=== PATIENT | female | born 1960 | race Caucasian/White ===

== ENCOUNTER 2018-02-09 08:39 | Observation (INO) ==
--- OUTSIDE RECORDS SUMMARY | 2018-02-09 09:00 | External Medical Summary | Clinical Summary ---
:1960 Author Organization [facility] Address [address] [place] [address] Care Team Providers Name Role Phone Preston Alonso MD Unavailable Santos Saucedo MD Unavailable Monica Murrieta MD Primary Care Provider Source Comments Some departments are not documenting in the electronic medical record. If you do not see the information that you expected, contact Release of Information in the Health Information Management department at [phone] for further assistance in locating additional records.[facility] Allergies Active Allergy Reactions Severity Noted Date Comments Hydrocodone UNKNOWN Low 01/13/2015 Morphine ITCHING Low 03/03/2015 Current Medications Prescription Sig. Disp. Refills Start Date End Date Status estradiol (ESTRACE) Take 2 mg by Active 1 mg tablet mouth daily. Naproxen-Esomeprazo Take by Active le Mag 500-20 mg mouth. TbID gabapentin Take 1 90 capsule 3 05/07/2017 Active (NEURONTIN) 100 mg capsule by capsuleIndications: mouth at Other insomnia bedtime daily. carbidopa/levodopa Take 1.5 210 tablet 8 01/14/2018 Active (SINEMET) 25/100 mg tablets by tabletIndications: mouth four Parkinson disease times daily. (HCC) at 6.30a,10.30a, 2.30p and at 6.30p amantadine Take 1 60 capsule 5 01/14/2018 Active (SYMMETREL) 100 mg capsule by capsuleIndications: mouth twice Parkinson disease daily. (HCC) rOPINIRole (REQUIP) Take 1 tablet 01/14/2018 Active 3 mg by mouth tabletIndications: twice daily. Parkinson disease ([facility]) rOPINIRole (REQUIP) TAKE ONE 90 tablet 8 07/26/2017 01/14/2018 Discontinued 3 mg TABLET BY tabletIndications: MOUTH THREE Parkinson disease TIMES A DAY ([facility]) carbidopa/levodopa 1.5 tab at 210 tablet 8 07/26/2017 01/14/2018 Discontinued (SINEMET) 25/100 mg 6.30a, 2 tab tabletIndications: at10.30a, Parkinson disease 2.30p and 1.5 ([facility]) tab at 6.30p Active Problems Problem Noted Date Cognitive change 05/07/2017 Overview: 2014 MOCA Last Assessment & Plan: Her symptoms are stable. No medication changes were recommended during the current visit. Insomnia 06/05/2016 Overview: On Neurontin (gabapentin) Last Assessment & Plan: Her symptoms are stable. No medication changes were recommended during the current visit. Parkinson disease ([facility]) 01/26/2015 Overview: Symptoms began in 2009, initial symptoms was left sided slowness. Diagnosed with Parkinson's disease in 2014. Atypical PD Features: Tremor Absent 01/30/2015 Total Mentation Score: 1 Total Activities of Daily Living Score: 4 Total Motor Exam: 25 Total UPDRS Score: 30 PDQ Total Percent: 14.1 % 03/05/2015 PDQ8 Total %: 3 Improved with Sinemet (carbidopa/levodopa) 25/100 10/04/2015 PDQ8 Total %: 6 06/05/2016 Nausea with Sinemet (carbidopa/levodopa) 25/100 PDQ8 Total %: 6 05/25/2017 PDQ8 Total %: 9 01/14/2018 PDQ8 Total %: 16 Personal KinetiGraph (PKG) Movement Recording: Bradykinesia: 13.1 Dyskinesia: 4.3 FDS: 11.2 PTI: 1.1% PTT: 0.4% Hand Pharmacoepidemiologist Strength: RIGHT: 27.6 KG LEFT: 23.7 KG Last Assessment & Plan: I recommended reducing Sinemet (carbidopa/levodopa) 25/100 to 1.5 tab four times a day due to possible dyskinesia. Patient was started on amantadine for dyskinesia. She was started on amantadine 100 mg twice a day. Side effects of amantadine were discussed with the patient and she was given a list of common side effects. The patient will call us in 1-2 weeks if dose adjustments are needed. Encounters Date Type Specialty Care Team Description 01/17/2018 Telephone Neurology Santos Saucedo MD Referral (BIG program) 01/14/2018 Office Visit Neurology Santos Saucedo MD Parkinson disease (HCC ) (Primary Dx); Cognitive change; Other insomnia from Last 3 Months Family History Medical History Relation Name Comments Cancer Other Dementia Neg Hx Parkinson's Neg Hx Tremor Neg Hx Relation Name Status Comments Other Social History Tobacco Use Types Packs/Day Years Used Date Never Smoker Smokeless Tobacco: Never Used Alcohol Use Drinks/Week oz/Week Comments Yes 0 Standard drinks or equivalent 0.0 rarely Sex Assigned at Date Recorded Not on file Last Filed Vital Signs Vital Sign Reading Time Taken Blood Pressure 105/72 01/14/2018 10:36 AM CDT Pulse 85 01/14/2018 10:36 AM CDT Temperature 36.7 C (98.1 F) 01/13/2015 2:57 PM CDT Respiratory Rate - - Oxygen Saturation 99% 01/13/2015 2:57 PM CDT Inhaled Oxygen Concentration - - Weight 62.4 kg (137 lb 9.6 oz) 01/14/2018 10:31 AM CDT Height 168.3 cm (5' 6.25") 01/14/2018 10:31 AM CDT Body Mass Index 22.04 01/14/2018 10:31 AM CDT Plan of Treatment Health Maintenance Due Date Last Done Comments HEPATITIS C SCREENING 1960 PHYSICAL (COMPREHENSIVE) EXAM 1965 PERTUSSIS VACCINE 1969 HIV SCREENING 1973 TETANUS VACCINE 1975 CERVICAL CANCER SCREENING 1988 BREAST CANCER SCREENING 1998 COLORECTAL CANCER SCREENING 2008 SHINGLES RECOMBINANT VACCINE (1 2008 of 2) INFLUENZA VACCINE 04/01/2018 07/16/2013, 03/31/2009, 04/29/2008, Additional history exists
--- OUTSIDE RECORDS SUMMARY | 2018-02-09 09:01 | External Medical Summary | Encounter Summary ---
:1960 Author Organization [facility] Address [address] [place] [address] Care Team Providers Name Role Phone Preston Alonso MD Unavailable Santos Saucedo MD Unavailable Monica Murrieta MD Primary Care Provider Reason for Visit Reason Comments Parkinson's Disease Encounter Details Date Type Department Care Team Description 01/14/2018 Office Visit [facility] Santos Saucedo MD Parkinson disease (HCC) (Primary Dx); Physicians-Neurology [address] Cognitive change; [facility] [place] [address] Other insomnia [place], [place] [address] [address] [place], [place] [phone] Social History Tobacco Use Types Packs/Day Years Used Date Never Smoker Smokeless Tobacco: Never Used Alcohol Use Drinks/Week oz/Week Comments Yes 0 Standard drinks or equivalent 0.0 rarely Sex Assigned at Date Recorded Not on file as of this encounter Last Filed Vital Signs Vital Sign Reading Time Taken Blood Pressure 105/72 01/14/2018 10:36 AM CDT Pulse 85 01/14/2018 10:36 AM CDT Temperature - - Respiratory Rate - - Oxygen Saturation - - Inhaled Oxygen Concentration - - Weight 62.4 kg (137 lb 9.6 oz) 01/14/2018 10:31 AM CDT Height 168.3 cm (5' 6.25") 01/14/2018 10:31 AM CDT Body Mass Index 22.04 01/14/2018 10:31 AM CDT in this encounter Instructions Patient Instructions - Santos Saucedo MD - 01/14/2018 11:00 AM CDTYou were prescribed amantadine, an antiviral, as treatment for Parkinsons disease. Amantadine isavailable in the following forms, 100mg capsules and tablets. You will take amantadine in the morning and afternoon. As with any medications, amantadine can have side effects. Common side effects are nausea, dizziness, constipation, confusion, fainting, hallucinations (seeing , hearing or feeling things that are not there), swelling of hands and feet, purplish red, net-like blotchy spots on skin. If you have any questions or side effects please call NEXT WEEK: Reduce Sinemet (carbidopa/levodopa) 25/100 1.5 tab four times a day in this encounter Progress Notes Santos Saucedo MD - 01/14/2018 11:00 AM CDTFormatting of this note may be different from the original. Date of Service: 01/14/2018 Subjective: Cheryl Metcalf is a 57 y.o. female. History of Present Illness Parkinson's Disease Follow-Up Visit Since my last visit I am: Slighly worse Symptoms Scale: Memory problems: Mild, bothersome Hallucinations/delusions: None Depression: Mild, occurs due to a reason Anxiety: None Apathy: Mild, elective activities affected Impulsive behavior: None Nighttime sleep: Mild, wake up to go to bathroom Daytime sleepiness: Slight, occasionally Vivid dreams: Slight, occasional REM sleep behavior disorder: None Restless leg syndrome: Mild, occasionally, mainly on prolonged seating Pain or muscle cramps: Mild, muscle or joint pain need medications Urination: Mild, go frequently, bothersome Constipation: None Dizziness or lightheadedness: Slight, occasional on standing Tiredness/Fatigue: Mild, occasionally tired Falling: I have not fallen Personal care assistance: I do not need any help, I take care of myself without any problems Total Score: Total Score: 19 Assistive Devices: Assistive devices for getting around: None OFF Time: OFF time: Yes Hours/day of OFF time: 2 Number of episodes/day: 2 OFF time is bothersome: All of the time Muscles spasms or strange posturing: Yes OFF disability: They are annoying to me Dyskinesia: Dyskinesia while awake: Yes Hours/day of dyskinesia: 1 Number of episodes/day: 2 Dyskinesia disability: Do not bother me but bothers my partner Employment Status: Employment: Currently working part-time or have changed jobs due to PD Review of Systems HENT: Positive for trouble swallowing. Gastrointestinal: Negative. Genitourinary: Positive for urgency. Negative for decreased urine volume, difficulty urinating, dyspareunia, dysuria, enuresis, flank pain, frequency, genital sores, hematuria, menstrual problem, pelvic pain, vaginal bleeding, vaginal discharge and vaginal pain. Objective: amantadine (SYMMETREL) 100 mg capsule Take 1 capsule by mouth twice daily. carbidopa/levodopa (SINEMET) 25/100 mg tablet Take 1.5 tablets by mouth four times daily. at 6.30a,10.30a, 2.30p and at 6.30p estradiol (ESTRACE) 1 mg tablet Take 2 mg by mouth daily. gabapentin (NEURONTIN) 100 mg capsule Take 1 capsule by mouth at bedtime daily. (Patient taking differently: Take 100 mg by mouth at bedtime as needed. 2 -3 weekly at bedtime) Naproxen-Esomeprazole Mag 500-20 mg TbID Take by mouth. rOPINIRole (REQUIP) 3 mg tablet Take 1 tablet by mouth twice daily. Vitals: 01/14/18 1031 01/14/18 1036 BP: 107/66 105/72 Pulse: 63 85 Weight: 62.4 kg (137 lb 9.6 oz) Height: 168.3 cm (66.25") Body mass index is 22.04 kg/m. Physical Exam EXAMINATION: ORIENTATION: Alert and Oriented. Cranial Nerves: II-XII Unremarkable except reduced facial expression and soft voice. Right Left Bradkinesia None Mild Tremor Hands Resting None None Postural None None Kinetic None None Tremor Other: None Dyskinesia: Mild Muscle Strength: Unremarkable Gait: Independent with minor impairment reduced left arm swing Can arise from the chair with arms folded PDQ8 - Quality of Life Had difficulty getting around in public places?: Never Had difficulty dressing?: Never [place] depressed?: Occasionally Had problems with your close personal relationships?: Occasionally Had problems with your concentration, for example, when reading or watching TV? : Never [place] unable to communicate effectively?: Occasionally Had painful muscle cramps or spasms?: Occasionally [place] embarrassed in public due to having Parkinson's disease?: Ocassionally PDQ8 Total Score (32 Possible): 5 PDQ8 Total %: 16 Assessment and Plan: Problem Parkinson disease (HCC) Symptoms began in 2009, initial symptoms was [...] %: 6 06/05/2016 Nausea with Sinemet (carbidopa/levodopa) 25/ PDQ8 Total %: 6 05/25/2017 PDQ8 Total %: 9 01/14/2018 PDQ8 Total %: 16 Personal KinetiGraph (PKG) Movement Recording: Bradykinesia: 13.1 Dyskinesia: 4.3 FDS: 11.2 PTI: 1.1% PTT: 0.4% Hand Therapeutic Dietitian Strength: RIGHT: 27.6 KG LEFT: 23.7 KG Cognitive Change 2014 MOCA Insomnia On Neurontin (gabapentin) Parkinson disease (HCC) I recommended reducing Sinemet (carbidopa/levodopa) 25/100 to 1.5 tab four times a day due to possible dyskinesia. Patient was started on amantadine for dyskinesia. She was started on amantadine 100 mgtwice a day. Side effects of amantadine were discussed with the patient and she was given a list of common side effects. The patient will call us in 1-2 weeks if dose adjustments are needed. Insomnia Her symptoms are stable. No medication changes were recommended during the current visit. Cognitive change Her symptoms are stable. No medication changes were recommended during the current visit. Patient will follow up in approximately 6 months. in this encounter Miscellaneous Notes Assessment & Plan Note - Santos Saucedo MD - 01/14/2018 11:04 AM CDT Associated Problem(s): Cognitive changeHer symptoms are stable. No medication changes were recommended during the current visit.Assessment & Plan Note - Santos Saucedo MD - 01/14/2018 11:04 AM CDTAssociated Problem(s): InsomniaHer symptoms are stable. No medication changes were recommended during the current visit.Assessment & Plan Note - Santos Saucedo MD - 01/14/2018 11:03 AM CDT Associated Problem(s): Parkinson disease (HCC)I recommended reducing Sinemet ( carbidopa/levodopa) 25/100 to 1.5 tab four times a day due to possible dyskinesia. Patient was started on amantadine for dyskinesia. She was started on amantadine 100 mgtwice a day. Side effects of amantadine were discussed with the patient and she was given a list of common side effects. The patient will call us in 1-2 weeks if dose adjustments are needed.in this encounter Plan of Treatment Not on fileas of this encounter Visit Diagnoses Diagnosis Parkinson disease (HCC) - Primary Paralysis agitans Cognitive change Other signs and symptoms involving cognition Other insomnia
--- OUTSIDE RECORDS SUMMARY | 2018-02-09 09:01 | External Medical Summary | Encounter Summary ---
:1960 Author Organization [facility] Address [address] [place] [address] Care Team Providers Name Role Phone Preston Alonso MD Unavailable Santos Saucedo MD Unavailable Monica Murrieta MD Primary Care Provider Reason for Referral Consult, Test & Treat Status Reason Specialty Diagnoses / Referred By Referred To Procedures Contact Contact New Request Specialty Diagnoses Parkinson disease (HCC) Santos Saucedo Services MD Required [address] [facility] [address] [place] [address] Reason for Visit Reason Comments Referral BIG program Encounter Details Date Type Department Care Team Description 01/17/2018 Telephone [facility] Santos Saucedo MD Referral (BIG program) Physicians-Neurology [address] [facility] [place] [facility] [address] [place] [phone] Social History Tobacco Use Types Packs/Day Years Used Date Never Smoker Smokeless Tobacco: Never Used Alcohol Use Drinks/Week oz/Week Comments Yes 0 Standard drinks or equivalent 0.0 rarely Sex Assigned at Date Recorded Not on file as of this encounter Miscellaneous Notes Telephone Encounter - Kiana Lynne LPN - 01/18/2018 10:07 AM CDTPt informed Telephone Encounter - Santos Saucedo MD - 01/17/2018 3:08 PM CDTokTelephone Encounter - Kiana Lynne, DAY CAMP COUNSELOR - 01/17/2018 9:11 AM CDTPt asked if you prefer her to do LSVT BIG?in this encounter Plan of Treatment Scheduled Referrals Name Priority Associated Diagnoses Order Schedule AMB REFERRAL TO PHYSICAL THERAPY Routine Parkinson disease (HCC) Ordered: as of this encounter Visit Diagnoses Diagnosis Parkinson disease (HCC) - Primary Paralysis agitans
[2018-02-09 09:13] VITALS: BMI 22.1
[2018-02-09 16:28] VITALS: BP 100/59; RESP 14; TEMP 95.7; O2SAT 98
--- NOTE | 2018-02-09 21:03 | Cardiology History & Physical ---
History of Present Illness Chief complaint: Chest pain HPI: This is a [facility] Patient Stated Medical History Parkinson's Disease Yes Angina Yes Other Cardiology Yes: low blood pressures Hx Kidney Stones Yes Hx Urinary Tract Infection Yes Anemia Yes: low iron Other Musculoskeletal Yes: chronic neck/upper back pain - Social History Smoking status: Never smoker Medications Home Medications Medication Instructions Recorded Confirmed Type Carbidopa/Levodopa [Carbidopa-Levo 1.5 tab PO BID #0 tab 03/09/15 02/09/18 History 25-100 mg Odt] Ropinirole HCl 1 tab PO TID #0 03/09/15 02/09/18 History Amantadine [Symmetrel] 100 mg PO BID 02/09/18 02/09/18 History Carbidopa/Levodopa [Carbidopa-Levo 2 tab PO BID 02/09/18 02/09/18 History 25-100 mg Odt] Lactobacillus Acidophilus 1 each PO DAILY 02/09/18 02/09/18 History [Probiotic] Allergies Allergy/AdvReac Type Severity Reaction Status Date / Time hydrocodone Allergy Mild RASH Verified 02/09/18 10:18 morphine Allergy Unknown Verified 02/09/18 10:18 Exam Vital signs: Temperature 95.7 F L 02/09/18 16:27 Pulse Rate 72 02/09/18 17:03 Respiratory Rate 14 02/09/18 16:27 Blood Pressure 100/59 02/09/18 16:27 Pulse Oximetry 98 02/09/18 16:27 Results Cardiac Enzymes 02/09/18 02/09/18 Range/Units 09:35 15:32 Troponin I < 0.012 < 0.012 (0-0.12) ng/ml Intake and Output 02/09/18 02/09/18 02/09/18 06:59 14:59 22:59 Intake Total 250 / 250 Balance 250 / 250 Intake: Oral 250 / 250 Other: Weight 137 lb 5.568 oz Patient Weight 02/10/18 06:59 Weight 137 lb 5.568 oz Hospital Course This is a general summary of the patient's hospital course. For more details refer to the complete medical record. Assessment and Plan - Assessment and Plan (1) Chest pain Current visit: Yes Status: Acute
[2018-02-09] MEDS ORDERED: NITROGLYCERIN 0.4 MG SUBLINGUAL TABLET SL PRN (21:04)
[2018-02-09 22:07] VITALS: PULSE 52
[2018-02-10] MEDS ORDERED: OMEPRAZOLE 20 MG CAPSULE PO SCH (06:30)
[2018-02-10] MEDS ORDERED: ASPIRIN *EC* 81 MG TABLET PO SCH (09:00)
== END 2018-02-09 21:44 | disposition home or self-care (01) ==
LOC: MED
PROVIDERS: ADMIT Internal Medicine Cardiovascular Disease; ATTEND Internal Medicine Cardiovascular Disease